=== PATIENT | male | born 1995 | race African-American/Black ===

== ENCOUNTER 2022-11-20 13:30 | Emergency (ER) | payer SELFPAY ==
[2022-11-20] MEDS ORDERED: Ketorolac 30 MG/ML SDV IM ONE (16:14)
[2022-11-20 16:47] LABS: APPEARANCE,URINE SLIGHTLY CLOUDY (CLEAR); BILIRUBIN,URINE NEGATIVE (NEGATIVE); COLOR,URINE YELLOW (YELLOW); GLUCOSE,URINE NEGATIVE (NEGATIVE); KETONES,URINE NEGATIVE (NEGATIVE); LEUKOCYTE ESTERASE,URINE NEGATIVE (NEGATIVE); NITRITE,URINE NEGATIVE (NEGATIVE); OCCULT BLOOD,URINE NEGATIVE (NEGATIVE); PROTEIN,URINE TRACE mg/dL (NEGATIVE); UROBILINOGEN,URINE 0.2 EU/dL (0.2-1.0)
[2022-11-20 16:54] LABS: AMORPHOUS SEDIMENT,URINE NOT SEEN; BACTERIA,URINE RARE; EPITHELIAL CELLS,URINE RARE; MUCUS,URINE MODERATE; RBC,URINE 0-5 (0-5); WBC,URINE 0-5 (0-5)
== END 2022-11-20 19:08 | disposition home or self-care (01) ==
LOC: JP.ED 13:30
DX: R10.31 Right lower quadrant pain (principal); F17.210 Nicotine dependence, cigarettes, uncomplicated; Z88.1 Allergy status to other antibiotic agents
CPT/HCPCS: 81001; 96372; 99284; J1885; 99283

== ENCOUNTER 2024-05-14 10:32 | Observation (INO) | payer MEDICAID ==
[~2024-05-14 10:32] MED LIST: Dexamethasone 4 MG/ML SDV ONE; Glycopyrrolate 0.2 MG/ML 5 ML MDV ONE; Neostigmine Methylsulfate 10 MG/10 ML MDV ONE; Ondansetron 4 MG/2 ML SDV ONE; Propofol 200 MG/20 ML SDV ONE; Rocuronium 50 MG/5 ML Vial ONE; fentaNYL 250 MCG/5 ML SDV ONE
[2024-05-14 11:09] LABS: HEMATOCRIT 45.5 % (38.4-49.7); MEAN CORPUSCULAR HEMOGLOBIN 30.8 pg (31.6-35.5); MEAN CORPUSCULAR HGB CONC 35.2 g/dL (31.6-35.5); MEAN CORPUSCULAR VOLUME 87.5 fL (81.4-99.0); RED BLOOD CELL COUNT 5.2 M/uL (4.14-5.76); WHITE BLOOD CELL COUNT,WBC 5.6 K/uL (3.2-11.0)
[2024-05-14 11:32] LABS: A/G RATIO 1.2 (1.2-2.2); ALANINE AMINOTRANSFERASE,ALT 23 U/L (12-78); ALBUMIN 4.8 g/dL (3.4-5.0); ALKALINE PHOSPHATASE 107 U/L (46-116); ASPARTATE AMNIOTRANSFERASE,AST 15 U/L (15-37); BILIRUBIN TOTAL 0.7 mg/dL (0.2-1.0); BLOOD UREA NITROGEN,BUN 11 mg/dL (7-18); CALCIUM 9.4 mg/dL (8.5-10.1); CARBON DIOXIDE,CO2 28 mmol/L (21-32); CHLORIDE,CL 104 mmol/L (100-108); ESTIMATED GFR 105 mL/min (>60); GLUCOSE RANDOM 82 mg/dL (74-106); POTASSIUM,K 3.7 mmol/L (3.6-5.2); PROTEIN TOTAL,TP 8.7 g/dL (6.4-8.2); SODIUM,NA 142 mmol/L (140-148)
[2024-05-14] MEDS: Lactated Ringers 1,000 ML IV SCH (11:40)
[2024-05-14] MEDS: Indocyanine Green 25 MG SDV IV ONE (11:41)
[2024-05-14] MEDS: metroNIDAZOLE/Normal Saline 500 MG in Premix Bag 1 BAG IV ONE (11:54)
[2024-05-14] MEDS: Clindamycin in 0.9 % Sod Chlor 600 MG in Premix Bag 1 BAG IV ONE (13:15)
[2024-05-14] MEDS ORDERED: Succinylcholine 200 MG/10 ML MDV ONE (13:28)
[2024-05-14] MEDS ORDERED: Lactated Ringers 1,000 ML ONE (13:41)
[2024-05-14] MEDS ORDERED: Lactated Ringers 1,000 ML IV SCH (13:45)
[2024-05-14] MEDS: Ropivacaine 35 ML, dexAMETHasone 8 MG, EPINEPHrine 0.4 MG, Sodium Chloride 0.9% 42.6 ML NERVRT SCH (13:50)
[2024-05-14] MEDS ORDERED: fentaNYL 250 MCG/5 ML SDV ONE (13:53)
[2024-05-14] MEDS: Bupivacaine 0.5% 50 ML MDV ONE (14:00)
[2024-05-14] MEDS: Lidocaine 1% with EPINEPHrine 1:100,000 50 ML MDV ONE (14:00)
[2024-05-14] MEDS ORDERED: Labetalol 20 MG/4 ML Syringe ONE (14:24)
[2024-05-14] MEDS ORDERED: Ondansetron 4 MG/2 ML SDV ONE (14:35)
[2024-05-14] MEDS: Acetaminophen/HYDROcodone 325-5 MG Tab PO ONE (15:41)
== END 2024-05-14 17:30 | disposition home or self-care (01) ==
LOC: JP.SDS 10:32 → JP.2SS 15:33
PROVIDERS: ADMIT Surgery; ATTEND Surgery
DX: K80.10 Calculus of gallbladder with chronic cholecystitis without obstruction (principal); F17.200 Nicotine dependence, unspecified, uncomplicated
CPT/HCPCS: 00790-QZ; 36415; 80053; 85027; 88304; A9270-GY; J0171; J0330; J0665; J1100; J1596; J1836; J1920; J2405; J2704; J2710; J2795; J3010; J3490; J7120